=== PATIENT | female | born 1990 | race African-American/Black ===

== ENCOUNTER 2021-09-27 18:03 | Emergency (ER) | payer OTHER ==
[~2021-09-27] VITALS: Ht 167.6 cm; Wt 95.3 kg
[~2021-09-27 18:03] MED LIST: IBUPROFEN 800800 M1 PO; ONDANSETRON HCL4 M2 PO; TYLENOL325 MG PO
[2021-09-27 18:48] LABS: URINE BILIRUBIN NEGATIVE (Negative); URINE BLOOD NEGATIVE (Negative); URINE CLARITY CLEAR; URINE COLOR YELLOW; URINE GLUCOSE-RANDOM* NEGATIVE (Negative); URINE KETONES 2+ (Negative); URINE LEUKOCYTES-REFLEX NEGATIVE (Negative); URINE NITRITE-REFLEX NEGATIVE (Negative); URINE PROTEIN (DIPSTICK) NEGATIVE (Negative); URINE UROBILINOGEN 0.2 E.U./dl (0.2-1.0)
[2021-09-27] MEDS ORDERED: CYCLOBENZAPRINE5 MG PO (20:00)
[2021-09-27] MEDS ORDERED: IBU600 MG PER TUBE (20:00)
[2021-09-27 20:35] VITALS: BP 129/91
== END 2021-09-27 20:36 | disposition home or self-care (01) ==
LOC: ER 18:03
PROVIDERS: Physician Assistant
DX: B34.9 Viral infection, unspecified (principal); Z20.822 Contact with and (suspected) exposure to COVID-19; E86.0 Dehydration; M79.10 Myalgia, unspecified site; Z98.890 Other specified postprocedural states; Z79.899 Other long term (current) drug therapy